=== PATIENT | female | born 1990 | race African-American/Black ===

== ENCOUNTER 2016-10-22 14:37 | Emergency (ER) ==
--- NOTE | 2016-10-22 15:38 | PROVIDER DOCUMENTATION ---
Addendum entered and electronically signed by Natanael Jarrett MD 10/22/16 17: 39: - Physician/Scribe Attestation Acting as Scribe for:: Natanael Jarrett Scribe Name: Rissa Carr Scribgautam documentation review:: This chart was documented by the indicated scribe and accurately reflects the services performed and decisions made by the indicated provider, as attested by the provider's signature. Original Note: HPI-Abdominal Pain/GI Problem - General Source: patient - History of Present Illness-ABD Nature of Presenting Problems: 25 y/o F presents to ED cc of abd pain . Pt states pain started x 1 day ago. Pt reports pain as cramping. Pt states she in currently on her cycle and reports it being irregular. Pt states she normally has cramping during cycle but this cramping is different. Pt is alert and oriented. Pt reports vomiting x 3 times today. Abdominal Pain Onset Location: reports: suprapubic Pain Radiation: reports: no radiation Quality of Pain: reports: cramping Severity in ED: reports: mild Onset/Duration: reports: 24 hours ago Timing: reports: still present Activities at Onset: reports: light activity Modifying Factors: improves with: vomiting Associated Symptoms: reports: nausea, vomiting, other (abd pain). denies: chest pain, fever/chills, shortness of breath Dark Stools Present?: reports: none noticed Rectal Bleeding: reports: none Rectal Pain: reports: none Bruising or Bleeding Gums?: No Similar Symptoms Previously?: No Recently seen or treated by another doctor?: No <Rissa Carr - Last Filed: 10/22/16 16:59> <Natanael Jarrett - Last Filed: 10/22/16 17:35> - General Chief Complaint: Abdominal Pain Stated Complaint: ABD PAIN Time Seen by Provider: 10/22/16 15:18 Allergies/Adverse Reactions: Patient Allergies Allergy/AdvReac Type Severity Reaction Status Date / Time No Known Allergies Allergy Verified 10/22/16 15:19 Home Medications: Home Medication List Medication Instructions Recorded Confirmed Last Taken Type Alprazolam [Xanax] 0.25 mg PO Q8-12H PRN PRN #10 10/22/16 Unknown Rx tablet Hyoscyamine [Levsin] 0.125 mg PO TID #14 tablet 10/22/16 Unknown Rx Naproxen [Naprosyn] 250 mg PO BID #14 tablet 10/22/16 Unknown Rx Review of Systems - Adult - REVIEW OF SYSTEMS - ADULT Constitutional: denies: chills, fever Ears, Nose, Mouth & Throat: denies: ear pain, throat pain Cardiovascular: denies: chest pain, palpitations Respiratory: denies: cough, shortness of breath Gastrointestinal: reports: abdominal pain, nausea, vomiting. denies: diarrhea Genitourinary: denies: dysuria, hematuria Musculoskeletal: denies: bone pain, back pain Neurological: denies: dizziness/vertigo, headache/migraines <Rissa Carr - Last Filed: 10/22/16 16:59> Past History - Adult - PAST MEDICAL HISTORY-ADULT Review of Records: reports: Old Records Reviewed, Nursing Assessment Review Major Childhood Illnesses: reports: denies history Cardiovascular: reports: denies history Respiratory: reports: denies history Gastrointestinal: reports: denies history Obstetrical/Gynecological: reports: denies history Genitourinary: reports: denies history Musculoskeletal: reports: denies history Neurological: reports: denies history Endocrine/Immune: reports: denies history Other Conditions: reports: denies history - IMMUNIZATION STATUS Childhood Immunizations: See Nurse Assessment Flu Vaccine: See Nurse Assessment - FAMILY HISTORY Family History: reviewed, not pertinent - SOCIAL HISTORY Smoking: denies Substance Use: denies <Rissa Carr - Last Filed: 10/22/16 16:59> Physical Exam-General - PHYSICAL EXAM-ADULT Initial Vital Signs Reviewed: Yes - CONSTITUTIONAL General Appearance: appears well, alert, no apparent distress - EYES Eyes: pink conjunctivae - NECK Neck: non-tender, full range of motion, supple - RESPIRATORY Respiratory: chest non-tender, lungs clear, normal breath sounds - CARDIOVASCULAR Cardiovascular: normal peripheral pulses, regular rate, rhythm, no edema - GASTROINTESTINAL (ABDOMEN) Abdominal Exam: normal bowel sounds, non tender, soft - MUSCULOSKELETAL Back Exam: normal inspection, no CVA tenderness, no vertebral tenderness Extremity: normal range of motion, non-tender, normal gait - SKIN Integumentary: normal color, normal turgor, warm/dry - NEUROLOGIC Neurologic: lawn specialist II-XII nml as tested, grossly normal, no motor/sensory deficits - PSYCHIATRIC Psych/Mental Status: normal mood/affect, normal thought content, normal thought process, oriented x 3 <Rissa Carr - Last Filed: 10/22/16 16:59> Progress - PLAN OF CARE/RESULTS Progress/Plan/Lab Results: PLAN: URINE/ / BASIC LABS PT UNDERSTANDS PLAN REVIEWED LABS. PT URINE IS DESCRIBED A DIRTY CATCH DUE TO EPITHELIAL CELLS IN URINE. PT IS READY TO BE DISCHARGED. PT UNDERSTANDS PLANS. Laboratory Tests 10/22/16 10/22/16 10/22/16 15:07 15:07 15:32 WBC 9.30 RBC 4.22 Hgb 13.4 Hct 39.3 MCV 93.1 MCH 31.8 H MCHC 34.1 RDW Std Deviation 12.1 Plt Count 259 MPV 9.8 Immature Gran % (Auto) 0.0 Neut % (Auto) 78.4 H Lymph % (Auto) 12.8 L [place] % (Auto) 6.8 Eos % (Auto) 1.9 Baso % (Auto) 0.1 Immature Gran # (Auto) 0.00 Neut # (Auto) 7.29 H Lymph # (Auto) 1.19 L [place] # (Auto) 0.63 H Eos # (Auto) 0.18 Baso # (Auto) 0.01 Sodium 137 Potassium 4.4 Chloride 100 Carbon Dioxide 26 Anion Gap 11 BUN 14 Creatinine 0.8 Estimated GFR/1.73 m2 > 60 BUN/Creatinine Ratio 18 Glucose 77 Calculated Osmolality 273 Calcium 9.4 Total Bilirubin 0.73 AST 20 ALT 11 Alkaline Phosphatase 56 Total Protein 7.7 Albumin 4.5 Globulin 3.2 Albumin/Globulin Ratio 1.4 Amylase 90 Urine Source Urine Color Urine Turbidity Urine pH Ur Specific [employer] Urine Protein Ur Glucose (Stick) Ur Ketones (Stick) Urine Blood Urine Nitrite Urine Bilirubin Urobilinogen Dipstick Urine Leukocytes Urine WBC (Auto) Urine RBC (Auto) U Epithel Cells (Auto) Urine Bacteria (Auto) Urine Test NEGATIVE 10/22/16 15:32 WBC RBC Hgb Hct MCV MCH MCHC RDW Std Deviation Plt Count MPV Immature Gran % (Auto) Neut % (Auto) Lymph % (Auto) [place] % (Auto) Eos % (Auto) Baso % (Auto) Immature Gran # (Auto) Neut # (Auto) Lymph # (Auto) [place] # (Auto) Eos # (Auto) Baso # (Auto) Sodium Potassium Chloride Carbon Dioxide Anion Gap BUN Creatinine Estimated GFR/1.73 m2 BUN/Creatinine Ratio Glucose Calculated Osmolality Calcium Total Bilirubin AST ALT Alkaline Phosphatase Total Protein Albumin Globulin Albumin/Globulin Ratio Amylase Urine Source CLEAN CATCH Urine Color YELLOW Urine Turbidity CLEAR Urine pH 5.5 Ur Specific [employer] 1.031 Urine Protein TRACE A Ur Glucose (Stick) NEGATIVE Ur Ketones (Stick) NEGATIVE Urine Blood NEGATIVE Urine Nitrite NEGATIVE Urine Bilirubin NEGATIVE Urobilinogen Dipstick 2 A Urine Leukocytes SMALL A Urine WBC (Auto) <10 Urine RBC (Auto) <10 U Epithel Cells (Auto) >10 A Urine Bacteria (Auto) 2+ Urine Test Orders Category Date Time Status AMYLASE [CHEM] Stat Lab 10/22/16 15:07 Completed CBC WITH ELECTRONIC DIFF [HEME] Stat Lab 10/22/16 15:07 Completed COMPREHENSIVE METABOLIC PANEL [CHEM] Stat Lab 10/22/16 15:07 Completed TEST-URINE [PREG] Stat Lab 10/22/16 15:32 Completed URINALYSIS W/POSS RFLX CULT [URINALYSIS] Stat Lab 10/22/16 15:32 Completed URINE CULTURE [RM] Routine Lab 10/22/16 15:51 Received Vital Signs - 24 hr 10/22/16 14:43 Temperature 97.6 F Pulse Rate 79 Respiratory 14 Rate Blood Pressure 118/80 O2 Sat by Pulse 100 Oximetry <Rissa Carr - Last Filed: 10/22/16 16:59> - PLAN OF CARE/RESULTS Progress/Plan/Lab Results: Walked cinthia to room to let patient know about medications she would be discharged on and says that she has been having anxiety since her Mother on 10/19/16 and asked for medication for help. Made aware of treatment plan <Natanael Jarrett - Last Filed: 10/22/16 17:35> Departure - Departure Time of Disposition Order: 16:59 Certified Medical Emergency: Emergent <Rissa Carr - Last Filed: 10/22/16 16:59> <Natanael Jarrett - Last Filed: 10/22/16 17:35> - Departure DIAGNOSIS: Bacteria in urine, Abdominal cramping, Adjustment disorder with anxious mood Disposition: HOME 01 Condition: Stable Additional Instructions: ED Follow Up Instructions: You have been treated by a care provider in the Emergency Department. These instructions are being provided to you so you can have an understanding of how to care for yourself upon discharge. Upon discharge from the Emergency Department, you are responsible for making arrangements for follow-up care by a physician of your choice. Take all prescribed medications as directed. Return to the Emergency Department immediately for any new or worsening symptoms. You may call the Physician Referral phone number at [phone] to obtain a list of Physicians who are taking new patients. Prescriptions: Hyoscyamine [Levsin] 0.125 mg PO TID #14 tablet Naproxen [Naprosyn] 250 mg PO BID #14 tablet Alprazolam [Xanax] 0.25 mg PO Q8-12H PRN PRN #10 tablet PRN Reason: Anxiety Referrals: None,PCP [Primary Care Provider] - Forms: Return to School/Parent Work Instructions: Abdominal Pain, Adult, [id number], Urinary Tract Infection Physician Attestation
[2016-10-22 15:39] LABS: MANUAL DIFF NEEDED? NO
[2016-10-22 15:40] LABS: URINE MICRO REVIEW NEEDED? NO; URINE SOURCE CLEAN CATCH
[2016-10-22 15:45] LABS: BASO% 0.1 % (0.0-0.8); EOS# 0.18 X1000 (0.0-0.7); EOS% 1.9 % (0.0-10.0); HEMATOCRIT 39.3 % (37.0-47.0); HEMOGLOBIN 13.4 g/dL (12.0-16.0); LYMPH# 1.19 X1000 (1.2-3.4); LYMPH% 12.8 % (20.5-51.1); MCH 31.8 PG (27-31); MCHC 34.1 g/dL (33-37); MCV 93.1 FL (81-99); MONO# 0.63 X1000 (0.11-0.59); MONO% 6.8 % (1.7-9.3); MPV 9.8 FL (7.4-10.4); NEUT% 78.4 % (42.2-75.2); PLT 259 X1000 (130-400); RBC 4.22 XMIL (4.2-5.4)
[2016-10-22 15:47] LABS: BILIRUBIN URINE NEGATIVE (NEGATIVE); BLOOD URINE NEGATIVE (NEGATIVE); COLOR YELLOW; GLUCOSE URINE NEGATIVE (NEGATIVE); LEUKOCYTES URINE SMALL (NEGATIVE); NITRITE URINE NEGATIVE (NEGATIVE); PH URINE 5.5; PROTEIN URINE TRACE mg/dL (NEGATIVE); SP GRAVITY URINE 1.031; TURBIDITY URINE CLEAR (CLEAR); UROBILINOGEN URINE 2 mg/dL (NORMAL)
[2016-10-22 15:48] LABS: UR EPITHELIAL CELLS >10 /HPF (<10); URINE BACTERIA 2+ /HPF; URINE CULTURE NEEDED? YES; URINE RBC <10 /HPF (<10); URINE WBC <10 /HPF (<10)
[2016-10-22 15:57] LABS: AGAP 11; ALBUMIN 4.5 g/dL (3.5-5.0); ALKALINE PHOSPHATASE 56 U/L (32-104); AMYLASE 90 U/L (20-200); BUN 14 mg/dL (8-22); CALCIUM 9.4 mg/dL (8.8-10.2); CHLORIDE 100 mmol/L (98-107); COSMO 273; GOT 20 U/L (10-30); GPT 11 U/L (10-36); POTASSIUM 4.4 mmol/L (3.5-5.1); SODIUM 137 mmol/L (136-145); TCO2 26 mmol/L (25-35); TOTAL BILIRUBIN 0.73 mg/dL (0.20-1.00); TOTAL PROTEIN 7.7 g/dL (6.3-8.3)
[2016-10-22 17:22] VITALS: BP 116/75
== END 2016-10-22 17:48 | disposition home or self-care (01) ==
LOC: ED 14:37
DX: R82.71 Bacteriuria (principal); R10.30 Lower abdominal pain, unspecified; F43.29 Adjustment disorder with other symptoms; R11.2 Nausea with vomiting, unspecified
CPT/HCPCS: 80053; 81001; 81025; 82150; 85025; 87088